=== PATIENT | male | born 1995 | race Caucasian/White ===

== ENCOUNTER 2017-02-23 07:35 | Emergency (ER) | payer OTHER ==
[~2017-02-23] VITALS: Ht 170.2 cm; Wt 54.4 kg
[~2017-02-23 07:35] MED LIST: XANAX0.5 MG PO; ZOLOFT50 MG PO
== END 2017-02-23 09:07 | disposition home or self-care (01) ==
LOC: ED 07:35
DX: S16.1XXA Strain of muscle, fascia and tendon at neck level, initial encounter (principal); F17.200 Nicotine dependence, unspecified, uncomplicated; X58.XXXA Exposure to other specified factors, initial encounter
CPT/HCPCS: 72040; 99283

== ENCOUNTER 2017-03-28 09:15 | Emergency (ER) | payer OTHER ==
[~2017-03-28] VITALS: Ht 170.2 cm; Wt 54.4 kg
[2017-03-28] MEDS ORDERED: ZOFRAN ODT4 MG PO (11:34)
[2017-03-28] MEDS ORDERED: PRILOSEC OTC20 MG PO (11:34)
== END 2017-03-28 11:41 | disposition home or self-care (01) ==
LOC: ED 09:15
DX: K29.21 Alcoholic gastritis with bleeding (principal); F17.200 Nicotine dependence, unspecified, uncomplicated; Z98.890 Other specified postprocedural states
CPT/HCPCS: 80053; 81001; 83690; 85025; 99283; J2405

== ENCOUNTER 2017-07-05 20:19 | Emergency (ER) | payer OTHER ==
[~2017-07-05] VITALS: Ht 170.2 cm; Wt 54.4 kg
[~2017-07-05 20:19] MED LIST changes: +PRILOSEC OTC20 MG PO; +ZOFRAN ODT4 MG PO
== END 2017-07-05 21:10 | disposition left against medical advice (07) ==
LOC: ED 20:19
DX: Z53.21 Procedure and treatment not carried out due to patient leaving prior to being seen by health care provider (principal)

== ENCOUNTER 2017-07-11 05:34 | Emergency (ER) | payer MEDICAID ==
[~2017-07-11] VITALS: Ht 170.2 cm; Wt 54.4 kg
[2017-07-11] MEDS ORDERED: PENICILLIN V P500 MG PO (06:21)
== END 2017-07-11 06:51 | disposition home or self-care (01) ==
LOC: ED 05:34
DX: S90.31XA Contusion of right foot, initial encounter (principal); K02.9 Dental caries, unspecified; F17.200 Nicotine dependence, unspecified, uncomplicated; X58.XXXA Exposure to other specified factors, initial encounter; Y93.39 Activity, other involving climbing, rappelling and jumping off
CPT/HCPCS: 73650; 99283

== ENCOUNTER 2017-10-17 23:53 | Emergency (ER) | payer MEDICAID ==
[~2017-10-17] VITALS: Ht 170.2 cm; Wt 54.4 kg
[~2017-10-17 23:53] MED LIST changes: +PENICILLIN V P500 MG PO
== END 2017-10-18 01:01 | disposition home or self-care (01) ==
LOC: ED 23:53
DX: S83.91XA Sprain of unspecified site of right knee, initial encounter (principal); F17.200 Nicotine dependence, unspecified, uncomplicated; W19.XXXA Unspecified fall, initial encounter; Y93.72 Activity, wrestling
CPT/HCPCS: 73560; 99283

== ENCOUNTER 2018-08-19 08:41 | Emergency (ER) | payer SELFPAY ==
[~2018-08-19] VITALS: Ht 170.2 cm; Wt 54.4 kg
--- OUTSIDE RECORDS SUMMARY | 2018-08-19 08:46 | XMS ---
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 Details: LWBS CRITERIA MET - Group Notification CARE PROVIDERS There are no care providers on record at this time. Yessi has no Care Guidelines for this patient. EBrigette VISIT COUNT (12 MO.) 2 [facility] TOTAL 2 NOTE: Visits indicate total known visits. ED/UCC VISIT TRACKING (12 MO.) 08/19/2018 08:42 [facility] [place] TYPE: Emergency COMPLAINT: - DENTAL PROBLEM 10/17/2017 23:54 [facility] [place] TYPE: Emergency COMPLAINT: - RT KNEE PAIN/SWELLING DIAGNOSES: - Sprain of unspecified site of right knee, initial encounter - Activity, wrestling - Pain in right knee - Nicotine dependence, unspecified, uncomplicated - Unspecified fall, initial encounter INPATIENT VISIT TRACKING (12 MO.) No inpatient visits to display in this time frame [email or web address]
== END 2018-08-19 09:00 | disposition home or self-care (01) ==
LOC: ED 08:41
DX: R68.84 Jaw pain (principal)